=== PATIENT | female | born 1935 | race Caucasian/White ===

== ENCOUNTER 2018-08-11 13:54 | Emergency (ER) | payer MEDICARE, OTHER, SELFPAY ==
[2018-08-11] VITALS (20 sets, daily range): BP systolic 134–174; BP diastolic 80–98; PULSE 70–98; RESP 13–26; TEMP 36.1–36.7; O2SAT 89–99
--- NOTE | 2018-08-11 14:19 | ED.GENADUL_ITS ---
Discharge Plan Disposition Patient Disposition: HOME Condition: Improving Discharge Details Chief Complaint: AMS/LOC Clinical Impression: Urinary tract infection Primary Care Provider: Idalia Alvarenga ED Provider: Aram Ag Discharge Instructions Instructions: Urinary Tract Infection in Women (ED) Additional Instructions: Home to rest today. Small, frequent sips of fluids to maintain hydration. Take antibiotics as prescribed. Return to the emergency department for any acute concerns Medical Decision Making 83-year-old female presents with her . She states that she received the shingles vaccine at local pharmacy on Thursday. She states that since that time she is had intermittent episodes of lightheadedness, feeling unsteady, feeling anxious that she is having a reaction. She did not have a rash or fever. She arrives to the emergency department slightly anxious the blood pressure 158/89. Pulse is high at triage at 98. Her exam is reassuring without acute finding. Referred for screening laboratories and given parenteral fluids. Her diagnostic studies are reassuring with unremarkable CBC, chemistries with slight anion gap of 12 and creatinine of 1.1, similar to previous. Troponin negative. Urinalysis consistent with acute urinary tract infection positive nitrates and leukoesterase. Will treat with a course of antibiotics Patient subsequently ate a meal with improvement. She is stable for discharge to home. Lab Data Lab results reviewed: Yes I reviewed the patient's lab results. Laboratory Results - last 24 hr 08/11/18 08/11/18 14:35 14:35 WBC 7.21 RBC 4.74 Hgb 14.0 Hct 41.4 MCV 87.3 MCH 29.5 MCHC 33.8 RDW 12.2 Plt Count 300 MPV 9.2 Immature Gran % 0.1 Neutrophils % 60.3 Lymphocytes % 30.1 Monocytes % 6.8 Eosinophils % 2.4 Basophils % 0.3 Absolute Neutrophils 4.35 Absolute Lymphocytes 2.17 Absolute Monocytes 0.49 Absolute Eosinophils 0.17 Absolute Basophils 0.02 Sodium 141 Potassium 3.9 Chloride 102 Carbon Dioxide 26.2 Anion Gap 12.8 H BUN 13 Creatinine 1.16 H Estimated GFR/1.73 m2 44.84 Glucose 123 H Calcium 9.3 Magnesium 2.2 Total Bilirubin 0.3 AST 22 ALT 34 Alkaline Phosphatase 85 Troponin I < 0.05 Total Protein 7.7 Albumin 3.8 ECG Data Attestation: I personally reviewed and interpreted this ECG (s) as follows: Interpretation: Normal sinus rhythm with a rate of 73, the QRS is narrow, there is no ST segment elevation HPI General Mode of arrival: ambulatory . Date/Time Provider Initiated Documentation: 08/11/18 14:04 . Limitations to Documentation: no limitations . Information obtained by: patient and family . History of Present Illness 83 year old F presents to the emergency department with the chief complaint of Lightheaded, concern for vaccine reaction, described as mild, Quality is described as constant, Patient reports no radiation. Patient started experiencing this hour(s) and it has been intermittent. Rest improves symptom(s), Other factors that worsen symptoms (Standing up) . Patient notes no other symptoms.; denies chest pain, fever/chills, headaches and rash. Patient did receive the following treatments prior to arrival, none Related Data Allergies Allergy/AdvReac Type Severity Reaction Status Date / Time latex Allergy Unverified 08/11/18 14:07 Penicillins Allergy Unverified 08/11/18 14:06 General Stated Complaint: AMS/LOC EVELINE: 2 Review of Systems Review of Systems No rash, no fever, no fall or injury. Denies chest pain or palpitations. 8 systems reviewed and otherwise negative [facility] [place] Social History Smoking/Tobacco Use Status: Never Alcohol Intake: former Substance use type: does not use Do you feel safe at home: Yes Do you feel safe in your relationship?: Yes Exam Narrative Exam Narrative: GEN: awake, alert, oriented 3. Pleasant, well groomed, interactive. HEAD: Normocephalic, atraumatic ENT: Mucous membranes moist, oropharynx unremarkable, External ear exam unremarkable EYES: PERRL, EOMI NECK: Full ROM, no DANIEL, no menigismus CHEST/RESP: Nontender, clear to auscultation bilateral, no wheeze/rhonchi/rales CARDIOVASCULAR: RRR, no murmur, rub gayatri. 2+ Rad pulse bilateral ABDOMEN: Soft, nontender, no mass. +Bowel sounds EXT: Full ROM, no edema, no rash Neuro: Grossly normal neurologic exam, conversant, interactive. Cranial nerves II through XII intact. Psych: Speech fluent, thoughts congruent, affect anxious Course Vital Signs Temperature 36.1 C L 08/11/18 14:02 Pulse 98 H 08/11/18 14:02 Respiratory Rate 20 08/11/18 14:02 Blood Pressure 158/89 H 08/11/18 14:02 Pulse Oximetry 98 08/11/18 14:02 Temperature 36.1 C L 08/11/18 14:02 Temperature Source Temporal Artery Scan 08/11/18 14:02 Pulse 98 H 08/11/18 14:02 Respiratory Rate 20 08/11/18 14:02 Blood Pressure 158/89 H 08/11/18 14:02 Pulse Oximetry 98 08/11/18 14:02 Oxygen Delivery Method Room Air 08/11/18 14:02 Oxygen Flow Rate 0 08/11/18 14:02 Pain Level 8 08/11/18 14:02
[2018-08-11] MEDS: Normal Saline 1,000 ML 1000 ML IV (14:46)
[2018-08-11 14:54] LABS: Abs Immature Grans 0.01 k/cumm (0.0-0.09); Absolute Basophil Count 0.02 k/cumm (0.0-0.2); Absolute Eosinophil Count 0.17 k/cumm (0.0-0.7); Absolute Lymphocyte Count 2.17 k/cumm (1.2-3.4); Absolute Monocyte Count 0.49 k/cumm (0.11-0.7); Absolute Neutrophil Count 4.35 k/cumm (1.2-6.7); Basophils % 0.3; Eosinophils % 2.4; HCT 41.4 % (36.0-46.0); Immature Grans % 0.1; Lymphocytes % 30.1; Mean Corp. HGB Concentration 33.8 g/dL (32.0-36.0); Mean Corpuscular Hemoglobin 29.5 pg (27.0-33.0); Mean Corpuscular Volume 87.3 fL (80-95); Mean Platelet Volume 9.2 fL (8.0-11.0); Monocytes % 6.8; Neutrophils % 60.3; Platelet Count 300 x1000/uL (130-400); RBC 4.74 m/cumm (4.00-5.20); RBC Distribution Width 12.2 % (11.7-14.6); White Blood Cell Count 7.21 k/cumm (4.4-10.8)
[2018-08-11 15:16] LABS: ALT 34 U/L (12-78); AST 22 U/L (15-37); Albumin 3.8 g/dL (3.4-5.0); Alkaline Phosphatase 85 U/L (46-116); Anion Gap 12.8 mmol/L (3-11); BUN 13 mg/dL (7-18); Bilirubin, Total 0.3 mg/dL (0.2-1.0); CO2 26.2 mmol/L (21.0-32.0); CREATININE 1.16 mg/dL (0.55-1.02); Calcium 9.3 mg/dL (8.5-10.1); Chloride 102 mmol/L (98-107); Estimated GFR 44.84 (mL/min/1.73m2); Glucose 123 mg/dL (70-100); Magnesium 2.2 mg/dL (1.8-2.4); Potassium 3.9 mmol/L (3.5-5.1); Sodium 141 mmol/L (136-145); Total Protein 7.7 g/dL (6.4-8.2); Troponin I < 0.05 ng/mL (0.00-0.06)
[2018-08-11 16:07] LABS: Bilirubin Negative (Negative); Blood Negative (Negative); Clarity Sl Cloudy (Clear); Glucose Negative (Negative); Ketones Negative (Negative); Leukocyte Esterase Small (Negative); Nitrite Positive (Negative); Specific Gravity 1.015 (1.005-1.025); Urobilinogen 0.2 EU/dL (Up TO 0.2); pH 7.5 (5-8)
[2018-08-11 16:22] LABS: Bacteria Many HPF (Negative); Crystals Negative HPF (Negative); Epithelial Cells Few HPF (Negative); Mucus Negative (Negative); Other Cells Rare Renal (Negative); RBC Negative (0-2)
[2018-08-11 16:23] LABS: C & S Indicated? Yes
[2018-08-11] MEDS: Cephalexin 500 MG CAP PO (16:40)
== END 2018-08-11 18:48 | disposition home or self-care (01) ==
PROVIDERS: Emergency Provider Emergency Medicine; PCP Student in an Organized Health Care Education/Training Program
DX: N39.0 Urinary tract infection, site not specified (principal); B96.20 Unspecified Escherichia coli [E. coli] as the cause of diseases classified elsewhere; F41.9 Anxiety disorder, unspecified; I10 Essential (primary) hypertension
CPT/HCPCS: 36415; 36416; 80053; 82962; 87077; 93005; 96360; 96361; 99284; 81003; 81015; 83735; 84484; 85025; 87086; 87186; 93010

== ENCOUNTER 2019-01-29 10:38 | Emergency (ER) | payer MEDICARE, OTHER, SELFPAY ==
[2019-01-29 10:42] VITALS: BP 109/92; PULSE 71; RESP 16; TEMP 36.7; O2SAT 95
--- NOTE | 2019-01-29 10:45 | ED.GENADUL_ITS ---
Discharge Plan Disposition Patient Disposition: HOME Condition: Improving Discharge Details Chief Complaint: Urinary Clinical Impression: Urinary tract infection Primary Care Provider: Idalia Alvarenga ED Provider: Aram Ag Home Meds and New Rx's Prescriptions: No Action trazodone 50 mg Tablet 50 mg PO QHS RF: 0 clopidogrel [Plavix] 75 mg Tablet 75 mg PO DAILY RF: 0 losartan 100 mg Tablet 100 mg PO DAILY RF: 0 cholecalciferol (vitamin D3) [Vitamin D3] 1,000 unit Capsule 1,000 unit PO DAILY RF: 0 bupropion HCl 150 mg Tablet Extended Release 24 Hr 150 mg PO QAM RF: 0 desvenlafaxine succinate 100 mg Tablet Extended Release 24 Hr 100 mg PO DAILY RF: 0 metoprolol succinate 25 mg Capsule,Sprinkle,Er 24hr 12.5 mg PO DAILY RF: 0 Discharge Instructions Instructions: Urinary Tract Infection in Women (ED) Medical Decision Making 83-year-old female reports recent treatment for urinary tract infection. Noted spotted blood when wiping this morning. She does take Plavix 75 mg/day. No persistent hematuria. She denies back pain or fever. She has otherwise been well. She arrives with a temp of 36.7, reassuring vital signs, and unremarkable exam. Urinalysis reveals some blood but also leukoesterase present. Reviewed records from [facility] which detail a course of nitrofurantoin that was started on January 20. Consistent with persistent UTI. Her recent creatinine show good urine function, will treat with ciprofloxacin as she is allergic to penicillins. The urine will be cultured. She is stable and appropriate for discharge home at this time. HPI General Mode of arrival: ambulatory . Date/Time Provider Initiated Documentation: 01/29/19 10:41 . Limitations to Documentation: no limitations . Information obtained by: patient . History of Present Illness 83 year old F presents to the emergency department with the chief complaint of Treated for UTI one week ago with 5 days abx. Now with hematuria. On plavix, described as mild, and is localized to the genitals. Patient started experiencing this day(s) and it has been intermittent. No exacerbating factors reported . Patient notes no other symptoms.. Related Data Home Medications Medication Instructions Recorded Confirmed bupropion HCl 150 mg PO QAM 01/29/19 01/29/19 cholecalciferol (vitamin D3) 1,000 unit PO DAILY 01/29/19 01/29/19 [Vitamin D3] clopidogrel [Plavix] 75 mg PO DAILY 01/29/19 01/29/19 desvenlafaxine succinate 100 mg PO DAILY 01/29/19 01/29/19 losartan 100 mg PO DAILY 01/29/19 01/29/19 metoprolol succinate 12.5 mg PO DAILY 01/29/19 01/29/19 trazodone 50 mg PO QHS 01/29/19 01/29/19 Allergies Allergy/AdvReac Type Severity Reaction Status Date / Time latex Allergy Unverified 01/29/19 10:43 Penicillins Allergy Unverified 01/29/19 10:43 General Stated Complaint: Urinary EVELINE: 4 Review of Systems Narrative: 6 systems reviewed and otherwise neg [facility] Social History Smoking/Tobacco Use Status: Never Alcohol Intake: former Substance use type: does not use Do you feel safe at home: Yes Do you feel safe in your relationship?: Yes Exam Narrative Exam Narrative: GEN: awake, alert, oriented 3. Pleasant, well groomed, interactive. HEAD: Normocephalic, atraumatic ENT: Mucous membranes moist, oropharynx unremarkable, External ear exam unremarkable EYES: PERRL, EOMI NECK: Full ROM, no DANIEL, no menigismus CHEST/RESP: Nontender, clear to auscultation bilateral, no wheeze/rhonchi/rales CARDIOVASCULAR: RRR, no murmur, rub gayatri. 2+ Rad pulse bilateral ABDOMEN: Soft, suprapubic mild tenderness without rebound or guarding, no mass. +Bowel sounds EXT: Full ROM, no edema, no rash Neuro: Grossly normal neurologic exam, conversant, interactive. Psych: Speech fluent, thoughts congruent, affect normal Course Vital Signs Vital signs: Vital Signs Temperature 36.7 C 01/29/19 10:42 Pulse 71 01/29/19 10:42 Respiratory Rate 16 01/29/19 10:42 Blood Pressure 109/92 H 01/29/19 10:42 Pulse Oximetry 95 01/29/19 10:42 Temperature 36.7 C 01/29/19 10:42 Temperature Source Temporal Artery Scan 01/29/19 10:42 Pulse 71 01/29/19 10:42 Respiratory Rate 16 01/29/19 10:42 Respiratory Effort Non-Labored 01/29/19 10:42 Blood Pressure 109/92 H 01/29/19 10:42 Pulse Oximetry 95 01/29/19 10:42 Oxygen Delivery Method Room Air 01/29/19 10:42 Oxygen Flow Rate 0 01/29/19 10:42 Pain Level 0 01/29/19 10:42
[2019-01-29 10:55] LABS: Bilirubin Small (Negative); Blood Large (Negative); Clarity Cloudy (Clear); Glucose Negative (Negative); Ketones Negative (Negative); Leukocyte Esterase Small (Negative); Nitrite Negative (Negative); Specific Gravity 1.025 (1.005-1.025)
[2019-01-29 11:02] LABS: C & S Indicated? No/Sq. Contamination; Epithelial Cells Many HPF (Negative)
== END 2019-01-29 11:23 | disposition home or self-care (01) ==
LOC: ER 11:29
PROVIDERS: Emergency Provider Emergency Medicine; PCP Student in an Organized Health Care Education/Training Program
DX: N39.0 Urinary tract infection, site not specified (principal); Z88.0 Allergy status to penicillin
CPT/HCPCS: 99283; 81003; 81015

== ENCOUNTER → 2021-02-25 14:05 | Outpatient (BNVA) | payer MEDICARE, SELFPAY | PROVIDERS: PCP Family Medicine; Referring Provider Family Medicine; Visit Provider Nurse Practitioner Adult Health | DX: F03.90 Unspecified dementia, unspecified severity, without behavioral disturbance, psychotic disturbance, mood disturbance, and anxiety (principal); I10 Essential (primary) hypertension; F41.8 Other specified anxiety disorders | CPT/HCPCS: 99204; 99215; G2212 ==

== ENCOUNTER → 2021-03-12 10:26 | Outpatient (BNVA) | payer MEDICARE, SELFPAY | PROVIDERS: PCP Family Medicine; Referring Provider Family Medicine; Visit Provider Nurse Practitioner Adult Health | DX: F03.90 Unspecified dementia, unspecified severity, without behavioral disturbance, psychotic disturbance, mood disturbance, and anxiety (principal) | CPT/HCPCS: 99213; 99214 ==